=== PATIENT | female | born 1975 | race African-American/Black ===

== ENCOUNTER 2020-01-24 18:21 | Observation (INO) ==
[2020-01-24 19:19] LABS: Basophils # 0.1 10*3/uL (0.0-0.2); Basophils % 0.5 % (0.0-0.8); Eosinophils # 0.4 10*3/uL (0.0-0.87); Eosinophils % 2.4 % (0.00-10.9); Hematocrit 39.6 VOL% (35.7-47.0); Hemoglobin 11.6 GM/DL (12.0-16.0); Immature Granulocytes % 0.5 %; Immature Granulocytes Absolute 0.07 #; Lymphocytes # 2.8 10*3/uL (1.4-4.0); Lymphocytes % 18.5 % (21.3-54.2); Mean Corpuscular HGB Conc 29.3 GM/DL (32-36); Mean Corpuscular Volume 66.1 FL (87-102); Monocytes % 7.7 % (1.7-12.7); Neutrophils % 70.4 % (38.7-73.9); Platelet Count 279 T/CUMM (130-400); Red Blood Count 5.99 MC/CUMM (3.8-5.5); Red Cell Distribution Width 21.2 % (9.3-17.3); White Blood Count 15.3 T/CUMM (4-12)
[2020-01-24 19:32] LABS: Albumin 3.6 G/DL (3.4-5.0); Bilirubin,Total 0.5 MG/DL (0.2-1.0); Calcium 8.4 MG/DL (8.5-10.1); Osmolality,Calculated 280.4 MOS/KG (273-304); Total Protein 7.2 G/DL (6.4-8.3)
[2020-01-24] MEDS ORDERED: ONDANSETRON 4 MG/2 ML VIAL IV STA (19:32)
[2020-01-24] MEDS ORDERED: MORPHINE 4 MG/1 ML VIAL IV STA ×2 (19:32→20:30)
[2020-01-24] MEDS ORDERED: ASPIRIN 325 MG TABLET PO STA (19:49)
[2020-01-24] MEDS ORDERED: hydrALAZINE 20 MG/1 ML VIAL IV STA (20:39)
[2020-01-24] MEDS ORDERED: ENOXAPARIN 100 MG/ML SYRINGE SUBCUT STA (20:46)
[2020-01-24] MEDS ORDERED: ACETAMINOPHEN 325 MG TABLET PO PRN (21:28)
[2020-01-24] MEDS ORDERED: MORPHINE 4 MG/1 ML VIAL IV PRN (21:28)
[2020-01-24] MEDS ORDERED: DOCUSATE SODIUM 100 MG CAPSULE PO PRN (21:28)
[2020-01-24] MEDS ORDERED: ONDANSETRON 4 MG/2 ML VIAL IV PRN (21:28)
[2020-01-24] MEDS ORDERED: hydrALAZINE 25 MG TABLET PO PRN (22:38)
[2020-01-25] MEDS: NITROGLYCERIN SL 0.4 MG TABLET SL PRN ×4 (04:58→08:30)
[2020-01-25 07:23] LABS: Calcium 8.5 MG/DL (8.5-10.1); Osmolality,Calculated 279.4 MOS/KG (273-304)
[2020-01-25 07:28] LABS: Basophils # 0.1 10*3/uL (0.0-0.2); Basophils % 0.4 % (0.0-0.8); Eosinophils # 0.4 10*3/uL (0.0-0.87); Eosinophils % 2.5 % (0.00-10.9); Hematocrit 38.1 VOL% (35.7-47.0); Hemoglobin 11.1 GM/DL (12.0-16.0); Immature Granulocytes % 0.4 %; Immature Granulocytes Absolute 0.07 #; Lymphocytes # 3.1 10*3/uL (1.4-4.0); Lymphocytes % 19.5 % (21.3-54.2); Mean Corpuscular HGB Conc 29.1 GM/DL (32-36); Mean Corpuscular Volume 66.8 FL (87-102); Monocytes % 8.9 % (1.7-12.7); Neutrophils % 68.3 % (38.7-73.9); Platelet Count 233 T/CUMM (130-400); Red Cell Distribution Width 20.8 % (9.3-17.3); White Blood Count 15.9 T/CUMM (4-12)
[2020-01-25] MEDS ORDERED: KETOROLAC 30 MG/1 ML VIAL IV ONE ×2 (08:55→18:00)
[2020-01-25] MEDS ORDERED: FUROSEMIDE 20 MG TABLET PO SCH (09:00)
[2020-01-25] MEDS ORDERED: FUROSEMIDE 40 MG TABLET PO SCH (09:00)
[2020-01-25] MEDS: PANTOPRAZOLE 40 MG TABLET PO SCH (09:32)
[2020-01-25] MEDS: ATORVASTATIN 80 MG TABLET PO SCH (09:32)
[2020-01-25] MEDS: ASPIRIN EC 81 MG TABLET PO SCH (09:32)
[2020-01-25] MEDS: CLOPIDOGREL 75 MG TABLET PO SCH (09:33)
[2020-01-25] MEDS: ENOXAPARIN 80 MG/0.8 ML SYRINGE SUBCUT SCH ×2 (09:33→21:32)
[2020-01-25] MEDS: GABAPENTIN 100 MG CAPSULE PO SCH ×3 (09:33→21:31)
[2020-01-25] MEDS: FUROSEMIDE 40 MG/4 ML VIAL IV SCH (09:33)
[2020-01-25] MEDS: METOPROLOL SUCCINATE XL 50 MG TABLET PO SCH (09:33)
[2020-01-25] MEDS ORDERED: POTASSIUM CHLORIDE 20 MEQ TABLET PO ONE (12:03)
[2020-01-25] MEDS: DICLOFENAC SODIUM 50 MG TABLET PO SCH ×2 (12:25→21:31)
[2020-01-26 05:37] LABS: Calcium 8.6 MG/DL (8.5-10.1); Osmolality,Calculated 282.4 MOS/KG (273-304)
[2020-01-26 05:41] LABS: Basophils % 0.4 % (0.0-0.8); Eosinophils # 0.3 10*3/uL (0.0-0.87); Eosinophils % 2.8 % (0.00-10.9); Hematocrit 36.8 VOL% (35.7-47.0); Immature Granulocytes % 0.4 %; Immature Granulocytes Absolute 0.04 #; Lymphocytes # 1.7 10*3/uL (1.4-4.0); Lymphocytes % 16.8 % (21.3-54.2); Mean Corpuscular HGB Conc 29.3 GM/DL (32-36); Mean Corpuscular Volume 67.2 FL (87-102); Mean Platelet Volume 10.7 FL (9.6-12.0); Monocytes % 12.9 % (1.7-12.7); Neutrophils % 66.7 % (38.7-73.9); Platelet Count 244 T/CUMM (130-400); Red Blood Count 5.48 MC/CUMM (3.8-5.5); Red Cell Distribution Width 20.8 % (9.3-17.3)
[2020-01-26 05:43] LABS: White Blood Count 10.4 T/CUMM (4-12)
[2020-01-26 05:44] LABS: Hemoglobin 10.8 GM/DL (12.0-16.0)
[2020-01-26] MEDS: GABAPENTIN 100 MG CAPSULE PO SCH (08:55)
[2020-01-26] MEDS: ATORVASTATIN 80 MG TABLET PO SCH (08:55)
[2020-01-26] MEDS: ASPIRIN EC 81 MG TABLET PO SCH (08:55)
[2020-01-26] MEDS: PANTOPRAZOLE 40 MG TABLET PO SCH (08:55)
[2020-01-26] MEDS: DICLOFENAC SODIUM 50 MG TABLET PO SCH (08:55)
[2020-01-26] MEDS: METOPROLOL SUCCINATE XL 50 MG TABLET PO SCH (08:55)
[2020-01-26] MEDS: CLOPIDOGREL 75 MG TABLET PO SCH (08:55)
[2020-01-26] MEDS: FUROSEMIDE 40 MG/4 ML VIAL IV SCH (08:58)
[2020-01-26] MEDS: ENOXAPARIN 80 MG/0.8 ML SYRINGE SUBCUT SCH (09:02)
[2020-01-26 11:58] VITALS: BP 127/73
== END 2020-01-26 12:13 | disposition home or self-care (01) ==
LOC: N.ED 18:21 → N.EDINP 18:21 → SUATTDRO 21:25 → N.EDINP 23:08 → N.TELES 23:41
PROVIDERS: ADMIT Internal Medicine; ATTEND Internal Medicine

== ENCOUNTER 2020-01-29 22:25 | Observation (INO) ==
[2020-01-30] MEDS ORDERED: ASPIRIN CHEW 81 MG TABLET PO STA (02:10)
[2020-01-30] MEDS ORDERED: NITROGLYCERIN SL 0.4 MG TABLET SL STA (02:10)
[2020-01-30 02:34] LABS: PT Patient Result 10.3 SECS (9.8-11.9)
[2020-01-30 02:37] LABS: Alanine Aminotransferase 17 U/L (13-56); Albumin 3.6 G/DL (3.4-5.0); Alkaline Phosphatase 120 U/L (45-117); Aspartate Amino Transferase 16 U/L (0-37); Bilirubin,Total < 0.39 MG/DL (0.2-1.0); Blood Urea Nitrogen 18 MG/DL (7-18); Calcium 9.1 MG/DL (8.5-10.1); Estimated Glom Filtration Rate 78 ML/MIN; Glucose 84 MG/DL (74-106); Osmolality,Calculated 279.4 MOS/KG (273-304); Total Protein 7.6 G/DL (6.4-8.3)
[2020-01-30 02:39] LABS: Basophils # 0.1 10*3/uL (0.0-0.2); Basophils % 0.4 % (0.0-0.8); Eosinophils # 0.4 10*3/uL (0.0-0.87); Eosinophils % 3.6 % (0.00-10.9); Hematocrit 41.4 VOL% (35.7-47.0); Hemoglobin 11.9 GM/DL (12.0-16.0); Immature Granulocytes % 0.3 %; Immature Granulocytes Absolute 0.04 #; Lymphocytes # 3.4 10*3/uL (1.4-4.0); Lymphocytes % 27.2 % (21.3-54.2); Mean Corpuscular HGB Conc 28.7 GM/DL (32-36); Mean Corpuscular Volume 67.2 FL (87-102); Monocytes % 10.6 % (1.7-12.7); NRBC # 0.02 10*3/uL; Neutrophils % 57.9 % (38.7-73.9); Platelet Count 338 T/CUMM (130-400); Red Blood Count 6.16 MC/CUMM (3.8-5.5); Red Cell Distribution Width 20.9 % (9.3-17.3); White Blood Count 12.3 T/CUMM (4-12)
[2020-01-30] MEDS ORDERED: ACETAMINOPHEN 325 MG TABLET PO PRN (03:33)
[2020-01-30] MEDS ORDERED: MORPHINE 4 MG/1 ML VIAL IV PRN (03:33)
[2020-01-30] MEDS ORDERED: GLUCAGON 1 MG VIAL IM PRN (03:33)
[2020-01-30] MEDS ORDERED: NITROGLYCERIN SL 0.4 MG TABLET SL PRN (03:33)
[2020-01-30] MEDS ORDERED: DEXTROSE 50% 25 GM/50 ML VIAL IV PRN (03:33)
[2020-01-30] MEDS ORDERED: ONDANSETRON 4 MG/2 ML VIAL IV STA (03:35)
[2020-01-30] MEDS ORDERED: MORPHINE 4 MG/1 ML VIAL IV STA (03:35)
[2020-01-30 03:48] LABS: Hypochromasia 2+; Ovalocytes 1+; Platelet Estimate Normal
[2020-01-30 03:49] LABS: Microcytosis 1+
[2020-01-30] MEDS ORDERED: KETOROLAC 30 MG/1 ML VIAL IV ONE ×2 (05:49→11:00)
[2020-01-30] MEDS ORDERED: FUROSEMIDE 20 MG TABLET PO PRN (08:59)
[2020-01-30] MEDS ORDERED: ATORVASTATIN 80 MG TABLET PO SCH (09:00)
[2020-01-30] MEDS ORDERED: ASPIRIN EC 81 MG TABLET PO SCH (09:00)
[2020-01-30] MEDS ORDERED: CLOPIDOGREL 75 MG TABLET PO SCH (09:00)
[2020-01-30] MEDS ORDERED: METOPROLOL SUCCINATE XL 50 MG TABLET PO SCH (09:00)
[2020-01-30 12:13] VITALS: BP 136/74
== END 2020-01-30 12:56 | disposition home or self-care (01) ==
LOC: N.ED 22:25 → N.EDINP 22:25 → N.TELEN 01-30 04:53
PROVIDERS: ADMIT Internal Medicine; ATTEND Internal Medicine

== ENCOUNTER 2020-06-28 15:08 | Observation (INO) ==
[2020-06-28 16:25] LABS: Albumin 3.6 G/DL (3.4-5.0); Bilirubin,Total 0.6 MG/DL (0.2-1.0); Calcium 9.1 MG/DL (8.5-10.1); Osmolality,Calculated 279.4 MOS/KG (273-304); Potassium 3.7 MMOL/L (3.5-5.1); Total Protein 6.9 G/DL (6.4-8.2)
[2020-06-28] MEDS ORDERED: MORPHINE 4 MG/1 ML VIAL IV STA (16:29)
[2020-06-28] MEDS ORDERED: ONDANSETRON 4 MG/2 ML VIAL IV ONE (16:29)
[2020-06-28] MEDS ORDERED: NITROGLYCERIN SL 0.4 MG TABLET SL PRN (16:29)
[2020-06-28] MEDS ORDERED: ASPIRIN EC 325 MG TABLET PO STA (16:29)
[2020-06-28 16:40] LABS: Basophils # 0.1 10*3/uL (0.0-0.2); Basophils % 0.5 % (0.0-0.8); Eosinophils # 0.2 10*3/uL (0.0-0.87); Eosinophils % 1.4 % (0.00-10.9); Immature Granulocytes % 0.3 %; Immature Granulocytes Absolute 0.04 #; Lymphocytes # 2.5 10*3/uL (1.4-4.0); Lymphocytes % 18.4 % (21.3-54.2); Mean Corpuscular HGB Conc 30.4 GM/DL (32-36); Mean Corpuscular Volume 75.1 FL (87-102); Mean Platelet Volume 12.6 FL (9.6-12.0); Monocytes % 9.6 % (1.7-12.7); Neutrophils % 69.8 % (38.7-73.9); Platelet Count 253 T/CUMM (130-400); Red Blood Count 6.26 MC/CUMM (3.8-5.5); Red Cell Distribution Width 19.6 % (9.3-17.3); White Blood Count 13.4 T/CUMM (4-12)
[2020-06-28 16:42] LABS: Hemoglobin 14.3 GM/DL (12.0-16.0)
[2020-06-28] MEDS ORDERED: POTASSIUM CHLORIDE 20 MEQ TABLET PO PRN (17:16)
[2020-06-28] MEDS ORDERED: FUROSEMIDE 20 MG TABLET PO PRN (17:16)
[2020-06-28] MEDS ORDERED: ACETAMINOPHEN 325 MG TABLET PO PRN (17:16)
[2020-06-28] MEDS ORDERED: GLUCAGON 1 MG VIAL IM PRN (17:22)
[2020-06-28] MEDS ORDERED: DEXTROSE 50% 25 GM/50 ML VIAL IV PRN (17:22)
[2020-06-28] MEDS ORDERED: CLOPIDOGREL 75 MG TABLET PO SCH (21:00)
[2020-06-29 05:20] LABS: Basophils # 0.1 10*3/uL (0.0-0.2); Basophils % 0.5 % (0.0-0.8); Eosinophils # 0.3 10*3/uL (0.0-0.87); Eosinophils % 2.3 % (0.00-10.9); Hematocrit 44.8 VOL% (35.7-47.0); Hemoglobin 13.7 GM/DL (12.0-16.0); Immature Granulocytes % 0.4 %; Immature Granulocytes Absolute 0.05 #; Lymphocytes # 2.7 10*3/uL (1.4-4.0); Lymphocytes % 22.7 % (21.3-54.2); Mean Corpuscular HGB Conc 30.6 GM/DL (32-36); Mean Corpuscular Volume 74.8 FL (87-102); Mean Platelet Volume 11.4 FL (9.6-12.0); Monocytes % 9.2 % (1.7-12.7); Neutrophils % 64.9 % (38.7-73.9); Platelet Count 244 T/CUMM (130-400); Red Blood Count 5.99 MC/CUMM (3.8-5.5); Red Cell Distribution Width 19.3 % (9.3-17.3); White Blood Count 11.8 T/CUMM (4-12)
[2020-06-29 05:58] LABS: Calcium 8.6 MG/DL (8.5-10.1); Osmolality,Calculated 280.3 MOS/KG (273-304); Potassium 3.6 MMOL/L (3.5-5.1)
[2020-06-29] MEDS ORDERED: ATORVASTATIN 80 MG TABLET PO SCH (09:00)
[2020-06-29] MEDS ORDERED: METOPROLOL SUCCINATE XL 50 MG TABLET PO SCH (09:00)
[2020-06-29] MEDS ORDERED: CITALOPRAM 20 MG TABLET PO SCH (09:00)
[2020-06-29] MEDS ORDERED: ASPIRIN EC 81 MG TABLET PO SCH (09:00)
[2020-06-29] MEDS ORDERED: PANTOPRAZOLE 40 MG TABLET PO SCH (09:00)
[2020-06-29 09:09] VITALS: BP 161/86
== END 2020-06-29 12:03 | disposition home or self-care (01) ==
LOC: N.ED 15:08 → N.EDINP 15:08 → N.TELES 18:41
PROVIDERS: ADMIT Internal Medicine; ATTEND Internal Medicine

== ENCOUNTER 2021-01-19 10:51 | Observation (INO) ==
[2021-01-19] MEDS ORDERED: ASPIRIN 325 MG TABLET PO STA (11:22)
[2021-01-19 11:33] LABS: Basophils % 0.3 % (0.0-0.8); Eosinophils # 0.1 10*3/uL (0.0-0.87); Eosinophils % 0.9 % (0.00-10.9); Hematocrit 48.1 VOL% (35.7-47.0); Hemoglobin 15.6 GM/DL (12.0-16.0); Immature Granulocytes % 0.4 %; Immature Granulocytes Absolute 0.04 #; Lymphocytes # 1.9 10*3/uL (1.4-4.0); Mean Corpuscular HGB Conc 32.4 GM/DL (32-36); Mean Corpuscular Volume 85.6 FL (87-102); Mean Platelet Volume 12.7 FL (9.6-12.0); Monocytes % 7.7 % (1.7-12.7); Neutrophils % 73.7 % (38.7-73.9); Platelet Count 185 T/CUMM (130-400); Red Blood Count 5.62 MC/CUMM (3.8-5.5); Red Cell Distribution Width 14.1 % (9.3-17.3)
[2021-01-19 11:50] LABS: Calcium 8.5 MG/DL (8.5-10.1); Potassium 3.6 MMOL/L (3.5-5.1)
[2021-01-19] MEDS ORDERED: ASPIRIN CHEW 81 MG TABLET PO STA (12:13)
[2021-01-19] MEDS ORDERED: ENOXAPARIN 100 MG/ML SYRINGE SUBCUT STA (12:13)
[2021-01-19] MEDS ORDERED: MORPHINE 10 MG/1 ML VIAL IV STA (12:14)
[2021-01-19] MEDS ORDERED: ONDANSETRON 4 MG/2 ML VIAL IV STA (12:14)
[2021-01-19] MEDS ORDERED: MORPHINE 2 MG/1 ML SYRINGE ONE ×2 (12:24)
[2021-01-19] MEDS ORDERED: GLUCAGON 1 MG VIAL IM PRN (12:42)
[2021-01-19] MEDS ORDERED: ONDANSETRON 4 MG/2 ML VIAL IV PRN (12:42)
[2021-01-19] MEDS ORDERED: ACETAMINOPHEN 325 MG TABLET PO PRN (12:42)
[2021-01-19] MEDS ORDERED: DOCUSATE SODIUM 100 MG CAPSULE PO PRN (12:42)
[2021-01-19] MEDS ORDERED: ALUMINUM/MAGNES/SIMETH MAX STR 30 ML UDCUP PO PRN (12:42)
[2021-01-19] MEDS ORDERED: DEXTROSE 50% 25 GM/50 ML SYRINGE IV PRN (12:48)
[2021-01-19] MEDS ORDERED: KETOROLAC 30 MG/1 ML VIAL IV ONE ×2 (13:00→14:47)
[2021-01-19] MEDS ORDERED: PREGABALIN 25 MG CAPSULE PO SCH (13:00)
[2021-01-19] MEDS ORDERED: POTASSIUM CHLORIDE 20 MEQ TABLET PO PRN (13:28)
[2021-01-19] MEDS ORDERED: FUROSEMIDE 20 MG TABLET PO PRN (13:28)
[2021-01-19] MEDS ORDERED: LORazepam 1 MG TABLET PO PRN (13:28)
[2021-01-19] MEDS ORDERED: KETOROLAC 15 MG/1 ML VIAL IV ONE (14:47)
[2021-01-19] MEDS: ACETAMINOPHEN 325 MG TABLET PO SCH ×2 (15:23→20:15)
[2021-01-19] MEDS: GABAPENTIN 100 MG CAPSULE PO SCH ×2 (15:23→20:14)
[2021-01-19] MEDS ORDERED: SERTRALINE 25 MG TABLET PO ONE (15:53)
[2021-01-19] MEDS: APIXABAN 5 MG TABLET PO SCH (20:15)
[2021-01-19] MEDS ORDERED: SERTRALINE 25 MG TABLET PO SCH (21:00)
[2021-01-19] MEDS ORDERED: CLOPIDOGREL 75 MG TABLET PO SCH (21:00)
[2021-01-20 06:08] LABS: Basophils % 0.3 % (0.0-0.8); Eosinophils # 0.1 10*3/uL (0.0-0.87); Eosinophils % 1.4 % (0.00-10.9); Hematocrit 49.5 VOL% (35.7-47.0); Hemoglobin 15.2 GM/DL (12.0-16.0); Immature Granulocytes % 0.1 %; Immature Granulocytes Absolute 0.01 #; Lymphocytes # 2.4 10*3/uL (1.4-4.0); Lymphocytes % 31.4 % (21.3-54.2); Mean Corpuscular HGB Conc 30.7 GM/DL (32-36); Mean Corpuscular Volume 87.6 FL (87-102); Mean Platelet Volume 13.4 FL (9.6-12.0); Monocytes % 9.5 % (1.7-12.7); Neutrophils % 57.3 % (38.7-73.9); Platelet Count 164 T/CUMM (130-400); Red Blood Count 5.65 MC/CUMM (3.8-5.5); Red Cell Distribution Width 14.1 % (9.3-17.3); White Blood Count 7.6 T/CUMM (4-12)
[2021-01-20 06:21] LABS: Bilirubin,Total 0.7 MG/DL (0.20-1.00); Calcium 8.6 MG/DL (8.5-10.1); Osmolality,Calculated 280.1 MOS/KG (273-304); Potassium 3.2 MMOL/L (3.5-5.1); Risk Ratio 3.34; Total Protein 6.3 G/DL (6.4-8.2); VLDL Cholesterol 18.2 MG/DL
[2021-01-20 06:36] LABS: Calcium 8.8 MG/DL (8.5-10.1); Osmolality,Calculated 279.3 MOS/KG (273-304); Potassium 3.6 MMOL/L (3.5-5.1)
[2021-01-20] MEDS ORDERED: POTASSIUM CHLORIDE 20 MEQ TABLET PO ONE (07:45)
[2021-01-20 08:17] VITALS: BP 159/69
[2021-01-20] MEDS: GABAPENTIN 100 MG CAPSULE PO SCH (08:35)
[2021-01-20] MEDS: APIXABAN 5 MG TABLET PO SCH (08:35)
[2021-01-20] MEDS: ACETAMINOPHEN 325 MG TABLET PO SCH (08:36)
[2021-01-20] MEDS ORDERED: PANTOPRAZOLE 40 MG TABLET PO SCH (09:00)
[2021-01-20] MEDS ORDERED: ATORVASTATIN 80 MG TABLET PO SCH (09:00)
[2021-01-20] MEDS ORDERED: ASPIRIN EC 81 MG TABLET PO SCH (09:00)
[2021-01-20] MEDS ORDERED: METOPROLOL SUCCINATE XL 50 MG TABLET PO SCH (09:00)
[2021-01-20] MEDS ORDERED: EZETIMIBE 10 MG TABLET PO SCH (09:00)
[2021-01-20] MEDS ORDERED: ENOXAPARIN 40 MG/0.4 ML SYRINGE SUBCUT SCH (12:00)
== END 2021-01-20 10:41 | disposition home or self-care (01) ==
LOC: EDUNIT# → N.ED 10:51 → N.EDINP 10:51 → N.TELEN 18:16
PROVIDERS: ADMIT Internal Medicine; ATTEND Internal Medicine

== ENCOUNTER 2021-12-18 16:48 | Observation (INO) ==
[2021-12-18] MEDS ORDERED: hydrALAZINE 20 MG/1 ML VIAL IV STA (17:20)
[2021-12-18] MEDS ORDERED: ASPIRIN CHEW 81 MG TABLET PO STA (17:20)
[2021-12-18 17:51] LABS: Basophils # 0.1 10*3/uL (0.0-0.2); Basophils % 0.4 % (0.0-0.8); Eosinophils # 0.1 10*3/uL (0.0-0.87); Eosinophils % 0.6 % (0.00-10.9); Hemoglobin 14.6 GM/DL (12.0-16.0); Immature Granulocytes % 0.5 %; Immature Granulocytes Absolute 0.07 #; Lymphocytes # 2.1 10*3/uL (1.4-4.0); Lymphocytes % 14.4 % (21.3-54.2); Mean Corpuscular HGB Conc 31.7 GM/DL (32-36); Mean Corpuscular Volume 82.9 FL (87-102); Mean Platelet Volume 11.6 FL (9.6-12.0); Monocytes # 0.8 10*3/uL (0.11-0.8); Monocytes % 5.2 % (1.7-12.7); Neutrophils % 78.9 % (38.7-73.9); Platelet Count 228 T/CUMM (130-400); Red Blood Count 5.55 MC/CUMM (3.8-5.5); Red Cell Distribution Width 14.6 % (9.3-17.3); White Blood Count 14.5 T/CUMM (4-12)
[2021-12-18] MEDS ORDERED: ONDANSETRON 4 MG/2 ML VIAL ONE (18:06)
[2021-12-18] MEDS ORDERED: ONDANSETRON 4 MG/2 ML VIAL IV STA (18:08)
[2021-12-18 18:09] LABS: Hypochromia Slight
[2021-12-18 18:10] LABS: Elliptocytes Few; Platelet Estimate Adequate; Polychromasia Few
[2021-12-18 18:22] LABS: Bilirubin,Total 1.5 MG/DL (0.20-1.00); Calcium 8.8 MG/DL (8.5-10.1); Potassium 3.6 MMOL/L (3.5-5.1); Total Protein 7.2 G/DL (6.4-8.2)
[2021-12-18] MEDS ORDERED: ONDANSETRON 4 MG/2 ML VIAL IV PRN (19:06)
[2021-12-18] MEDS ORDERED: MORPHINE 2 MG/1 ML SYRINGE IV PRN (19:06)
[2021-12-18] MEDS ORDERED: NITROGLYCERIN SL 0.4 MG TABLET SL PRN (19:10)
[2021-12-18] MEDS ORDERED: POTASSIUM CHLORIDE 20 MEQ TABLET PO PRN (19:10)
[2021-12-18] MEDS ORDERED: LORazepam 1 MG TABLET PO PRN (19:14)
[2021-12-18] MEDS ORDERED: hydrALAZINE 20 MG/1 ML VIAL IV PRN (19:38)
[2021-12-18] MEDS ORDERED: LOPERAMIDE 2 MG CAPSULE PO PRN (19:39)
[2021-12-18] MEDS ORDERED: SODIUM CHLORIDE 0.9% 1,000 ML IV SCH (20:00)
[2021-12-18] MEDS ORDERED: hydrALAZINE 25 MG TABLET PO SCH (21:00)
[2021-12-18] MEDS ORDERED: ENOXAPARIN 40 MG/0.4 ML SYRINGE SUBCUT SCH (21:00)
[2021-12-18] MEDS ORDERED: CLOPIDOGREL 75 MG TABLET PO SCH (21:00)
[2021-12-18] MEDS: METOPROLOL SUCCINATE XL 50 MG TABLET PO SCH (23:00)
[2021-12-18] MEDS: APIXABAN 5 MG TABLET PO SCH (23:00)
[2021-12-18] MEDS: FAMOTIDINE 20 MG/2 ML VIAL IV SCH (23:01)
[2021-12-19 05:51] LABS: Basophils # 0.1 10*3/uL (0.0-0.2); Basophils % 0.4 % (0.0-0.8); Eosinophils % 0.2 % (0.00-10.9); Hematocrit 41.5 VOL% (35.7-47.0); Hemoglobin 13.1 GM/DL (12.0-16.0); Immature Granulocytes % 0.3 %; Immature Granulocytes Absolute 0.04 #; Lymphocytes # 1.6 10*3/uL (1.4-4.0); Lymphocytes % 11.9 % (21.3-54.2); Mean Corpuscular HGB Conc 31.6 GM/DL (32-36); Mean Corpuscular Volume 82.8 FL (87-102); Mean Platelet Volume 11.4 FL (9.6-12.0); Monocytes # 0.7 10*3/uL (0.11-0.8); Monocytes % 5.1 % (1.7-12.7); Neutrophils % 82.1 % (38.7-73.9); Platelet Count 229 T/CUMM (130-400); Red Blood Count 5.01 MC/CUMM (3.8-5.5); Red Cell Distribution Width 14.7 % (9.3-17.3); White Blood Count 13.3 T/CUMM (4-12)
[2021-12-19 06:13] LABS: Calcium 8.3 MG/DL (8.5-10.1); Potassium 3.3 MMOL/L (3.5-5.1)
[2021-12-19] MEDS ORDERED: CHLORTHALIDONE 25 MG TABLET PO SCH (09:00)
[2021-12-19] MEDS ORDERED: PANTOPRAZOLE 40 MG TABLET PO SCH (09:00)
[2021-12-19] MEDS ORDERED: OLMESARTAN 20 MG TABLET PO SCH (09:00)
[2021-12-19] MEDS ORDERED: ASPIRIN EC 81 MG TABLET PO SCH (09:00)
[2021-12-19] MEDS ORDERED: ARIPiprazole 5 MG TABLET PO SCH (09:00)
[2021-12-19] MEDS ORDERED: ESCITALOPRAM 10 MG TABLET PO SCH (09:00)
[2021-12-19] MEDS ORDERED: METOPROLOL SUCCINATE XL 50 MG TABLET PO SCH (09:00)
[2021-12-19] MEDS ORDERED: ATORVASTATIN 80 MG TABLET PO SCH (09:00)
[2021-12-19] MEDS: METOPROLOL SUCCINATE XL 50 MG TABLET PO SCH (10:55)
[2021-12-19] MEDS: APIXABAN 5 MG TABLET PO SCH (10:55)
[2021-12-19] MEDS ORDERED: POTASSIUM CHLORIDE 20 MEQ TABLET PO ONE (11:10)
[2021-12-19] MEDS: FAMOTIDINE 20 MG/2 ML VIAL IV SCH (11:31)
[2021-12-19 16:19] VITALS: BP 125/65
== END 2021-12-19 16:00 | disposition home or self-care (01) ==
LOC: N.ED 16:48 → N.EDINP 16:48 → N.TELEN 20:06
PROVIDERS: ADMIT Internal Medicine; ATTEND Internal Medicine

== ENCOUNTER 2022-02-21 12:04 | Observation (INO) ==
[2022-02-21] MEDS ORDERED: ONDANSETRON 4 MG/2 ML VIAL IV STA (12:22)
[2022-02-21 12:30] LABS: Basophils # 0.1 10*3/uL (0.0-0.2); Basophils % 0.5 % (0.0-0.8); Eosinophils # 0.1 10*3/uL (0.0-0.87); Eosinophils % 0.4 % (0.00-10.9); Hematocrit 42.7 VOL% (35.7-47.0); Immature Granulocytes % 0.3 %; Immature Granulocytes Absolute 0.04 #; Lymphocytes # 2.7 10*3/uL (1.4-4.0); Mean Corpuscular HGB Conc 30.4 GM/DL (32-36); Mean Corpuscular Volume 80.1 FL (87-102); Monocytes # 0.9 10*3/uL (0.11-0.8); Monocytes % 7.3 % (1.7-12.7); Neutrophils % 69.5 % (38.7-73.9); Platelet Count 269 T/CUMM (130-400); Red Blood Count 5.33 MC/CUMM (3.8-5.5); Red Cell Distribution Width 18.6 % (9.3-17.3); White Blood Count 12.1 T/CUMM (4-12)
[2022-02-21 12:41] LABS: INR 1.3; PT Patient Result 14.5 SECS (10.1-12.1); Partial Thromboplastin Time 25.9 SECS (23.7-32.9)
[2022-02-21] MEDS ORDERED: FUROSEMIDE 40 MG/4 ML VIAL IV STA (12:48)
[2022-02-21 13:04] LABS: Albumin 3.7 G/DL (3.4-5.0); Calcium 9.1 MG/DL (8.5-10.1); Osmolality,Calculated 280.4 MOS/KG (273-304); Potassium 3.9 MMOL/L (3.5-5.1); Total Protein 6.7 G/DL (6.4-8.2)
[2022-02-21 13:47] LABS: Lymphocytes 22 % (20-55); Nucleated Red Blood Cells 1 /100 WBC (0-5); Total Cells Counted 100
[2022-02-21 13:48] LABS: Microcytosis Slight; Platelet Estimate Normal; Polychromasia Slight
[2022-02-21 14:42] LABS: Barbiturates Screen,Urine Negative (Negative); Benzodiazepines Screen,Urine Negative (Negative); Cannabinoid Screen,Urine Positive (Negative); Opiate Screen,Urine Negative (Negative); Phencyclidine Screen,Urine Negative (Negative)
[2022-02-21] MEDS ORDERED: ACETAMINOPHEN 325 MG TABLET PO PRN (15:00)
[2022-02-21] MEDS ORDERED: GLUCAGON 1 MG VIAL IM PRN (15:00)
[2022-02-21] MEDS ORDERED: DEXTROSE 10% 250 ML BAG IV PRN (15:05)
[2022-02-21] MEDS ORDERED: NON-FORMULARY MEDICATION (Diphenhydramine-Acetaminophen [Tylenol Pm Extra Strength] 25-500 PO PRN (15:08)
[2022-02-21] MEDS ORDERED: LORazepam 0.5 MG TABLET PO PRN (15:08)
[2022-02-21] MEDS ORDERED: INFLUENZA VIRUS VACCINE 0.5 ML SYRINGE IM ONE (16:28)
[2022-02-21] MEDS: INSULIN LISPRO 100 UNIT/ML SUBCUT SCH ×2 (17:35→21:57)
[2022-02-21] MEDS ORDERED: ENOXAPARIN 40 MG/0.4 ML SYRINGE SUBCUT SCH (21:00)
[2022-02-21] MEDS ORDERED: CLOPIDOGREL 75 MG TABLET PO SCH (21:00)
[2022-02-21] MEDS: FLUTICASONE 50 MCG NASAL SPRAY 16 GM BOTTLE BOTH NARES SCH (21:56)
[2022-02-21] MEDS: APIXABAN 5 MG TABLET PO SCH (21:56)
[2022-02-21] MEDS: ASCORBIC ACID 500 MG TABLET PO SCH (21:56)
[2022-02-22 05:50] LABS: Basophils # 0.1 10*3/uL (0.0-0.2); Basophils % 0.7 % (0.0-0.8); Eosinophils # 0.2 10*3/uL (0.0-0.87); Eosinophils % 1.9 % (0.00-10.9); Hematocrit 39.2 VOL% (35.7-47.0); Hemoglobin 12.1 GM/DL (12.0-16.0); Immature Granulocytes % 0.5 %; Immature Granulocytes Absolute 0.05 #; Lymphocytes # 2.2 10*3/uL (1.4-4.0); Lymphocytes % 21.5 % (21.3-54.2); Mean Corpuscular HGB Conc 30.9 GM/DL (32-36); Monocytes # 0.8 10*3/uL (0.11-0.8); Monocytes % 8.2 % (1.7-12.7); Neutrophils % 67.2 % (38.7-73.9); Platelet Count 241 T/CUMM (130-400); Red Blood Count 4.96 MC/CUMM (3.8-5.5); Red Cell Distribution Width 18.1 % (9.3-17.3); White Blood Count 10.1 T/CUMM (4-12)
[2022-02-22] MEDS ORDERED: PANTOPRAZOLE 40 MG TABLET PO SCH (06:00)
[2022-02-22 06:09] LABS: Albumin 3.1 G/DL (3.4-5.0); Bilirubin,Total 1.9 MG/DL (0.20-1.00); Calcium 8.4 MG/DL (8.5-10.1); Potassium 3.1 MMOL/L (3.5-5.1); Total Protein 6.2 G/DL (6.4-8.2)
[2022-02-22] MEDS ORDERED: FUROSEMIDE 40 MG/4 ML VIAL IV SCH (08:00)
[2022-02-22 08:46] VITALS: BP 172/84
[2022-02-22] MEDS ORDERED: ESCITALOPRAM 10 MG TABLET PO SCH (09:00)
[2022-02-22] MEDS ORDERED: ARIPiprazole 5 MG TABLET PO SCH (09:00)
[2022-02-22] MEDS ORDERED: ATORVASTATIN 80 MG TABLET PO SCH (09:00)
[2022-02-22] MEDS ORDERED: EZETIMIBE 10 MG TABLET PO SCH (09:00)
[2022-02-22] MEDS ORDERED: METOPROLOL SUCCINATE XL 50 MG TABLET PO SCH (09:00)
[2022-02-22] MEDS ORDERED: OLMESARTAN 20 MG TABLET PO SCH (09:00)
[2022-02-22] MEDS ORDERED: POTASSIUM CHLORIDE 20 MEQ TABLET PO ONE (09:52)
[2022-02-22] MEDS: INSULIN LISPRO 100 UNIT/ML SUBCUT SCH (10:06)
[2022-02-22] MEDS: ASCORBIC ACID 500 MG TABLET PO SCH (10:10)
[2022-02-22] MEDS: APIXABAN 5 MG TABLET PO SCH (10:10)
[2022-02-22] MEDS: FLUTICASONE 50 MCG NASAL SPRAY 16 GM BOTTLE BOTH NARES SCH (10:20)
== END 2022-02-22 11:52 | disposition home or self-care (01) ==
LOC: EDUNIT# 12:04 → EDBD 12:04 → N.EDINP 12:04 → N.ED 12:04 → N.EDINP 16:55 → N.2W 16:59
PROVIDERS: ADMIT Internal Medicine; ATTEND Internal Medicine